=== PATIENT | female | born 1950 | race Caucasian/White ===

== ENCOUNTER 2020-08-24 10:43 | Outpatient (CLI) | payer MEDICARE, SELFPAY ==
--- NOTE | 2020-08-24 10:52 | MM_ITS ---
WS: [id number] BILATERAL SCREENING DIGITAL MAMMOGRAM WITH CAD HISTORY: SCREENING COMPARISON: 06/15/2019 and 01/29/2017 Bilateral CC and MLO views submitted. Computer aided detection analyzed. Breast composition: There are scattered areas of fibroglandular density. No suspicious masses, microc alcifications or architectural distortion. Benign breast arterial calcifications. MM/[place] [id number] IMPRESSION: BI-RADS: 2-Benign FOLLOW UP: 1 Year Follow-up
== END 2020-08-24 10:44 | disposition home or self-care (01) ==
LOC: RADSHAW 10:49
PROVIDERS: PCP Nurse Practitioner Family; Visit Provider Nurse Practitioner Family
DX: Z12.31 Encounter for screening mammogram for malignant neoplasm of breast (principal)
CPT/HCPCS: 77067

== ENCOUNTER 2024-11-12 18:32 | Observation (INO) | payer MEDICARE, SELFPAY ==
[2024-11-12 18:39] VITALS: BP 174/96; PULSE 104; RESP 18; TEMP 36.6; O2SAT 92; BMI 27.4
[2024-11-12 18:42] VITALS: BP 174/86; PULSE 105; O2SAT 92
--- NOTE | 2024-11-12 18:59 | ECG_ITS ---
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
--- NOTE | 2024-11-12 19:22 | XRR_ITS ---
PROCEDURE INFORMATION: Exam: XR Left Hip Exam date and time: 11/12/2024 7:29 PM Age: 74 years old Clinical indication: Injury or trauma; Fall; Blunt trauma (contusions or hematomas); Left; Hip TECHNIQUE: Imaging protocol: Radiologic exam of the left hip. Views: 2 or 3 views hip with pelvis when performed. COMPARISON: No relevant prior studies available. FINDINGS: Bones/joints: There is a minimally displaced left superior pubic ramus fracture. No additional fractures. Degenerative changes involve the left hip. Soft tissues: Unremarkable. XR/XR hip LT 2-3V wo/w pel* [id number] IMPRESSION: Minimally displaced left superior pubic ramus fracture.
--- NOTE | 2024-11-12 19:22 | XRR_ITS ---
PROCEDURE INFORMATION: Exam: XR Left Wrist Exam date and time: 11/12/2024 7:29 PM Age: 74 years old Clinical indication: Injury or trauma; Fall; Blunt trauma (contusions or hematomas); Wrist; Left TECHNIQUE: Imaging protocol: Radiologic exam of the left wrist. Views: 3 or more views. COMPARISON: No relevant prior studies available. FINDINGS: Bones/joints: There is an impacted fracture involving the distal radial metaphysis without intra-articular extension. Suspected old ulnar styloid fracture. No additional fractures identified. Soft tissues: Diffuse soft tissue swelling present. XR/XR wrist LT min 3V* [id number] IMPRESSION: Acute impacted fracture involving the distal radial metaphysis.
--- NOTE | 2024-11-12 19:51 | ED_ITS ---
HPI - Fall General: Chief Complaint: Fall Stated Complaint: fall on ice - left hip/arm pain Time Seen by Provider: 11/12/24 18:46 History of Present Illness: This patient is a 74-year-old white female who presents to the emergency department for evaluation of injuries after falling. Patient states she slipped in the snow and ice tonight when she was going out to get the mail. She complains of pain in the left wrist and left hip. She was unable to ambulate following the fall. No head injury. Review of Systems General: Reports: 10 or more systems reviewed and unremarkable except in HPI and below Musc: Reports: other (Left wrist pain/injury, left hip pain/injury.) Physical Exam Const: COMMON NORMALS: no acute distress, patient oriented x3 and no limitations GENERAL APPEARANCE: cooperative and comfortable HENMT: COMMON NORMALS: normocephalic, atraumatic, Normal nasal mucous membranes and turbinates present, moist oral mucous membranes and oropharynx normal HEAD & SCALP: normal to inspection, normocephalic and atraumatic FACE & SINUS: normal facial exam NOSE: Normal nasal mucous membranes and turbinates present Eye: COMMON NORMALS: Equal, round and reactive pupils present, EOMs intact bilaterally and conjunctivae normal GENERAL EYE: appearance normal, both eyes and all related structures CONJUNCTIVA: Yes conjunctivae normal PUPIL: Yes Equal, round and reactive pupils present Neck/C-Spine: COMMON NORMALS: supple and no JVD Chest: COMMONS NORMALS: normal inspection of the chest Resp: COMMON NORMALS: normal respiratory effort and clear to auscultation bilaterally AUSCULTATION: clear to auscultation bilaterally Cardio: COMMON NORMALS: no JVD, regular rate, regular rhythm, No gallops present (Cardio), No murmurs present (Cardio) and No rub (Cardio) RATE: regular rate RHYTHM: regular rhythm GI: COMMON NORMALS: Normal to inspection, nondistended, normoactive bowel sounds present, Soft to palpation and non-tender AUSCULTATION: Yes normoactive bowel sounds PALPATION: Yes Soft to palpation Back/Pelvis: COMMON NORMALS: no thoracic nor lumbar tenderness PELVIS: Yes Other pelvic findings (Left groin pain. Mild pain with range of motion of left hip.) COCCYX: Other pelvic findings (Left groin pain. Mild pain with range of motion of left hip.) Extremity: NARRATIVE EXTREMITY EXAM: Mild swelling over the distal radius left wrist. Painful range of motion. No open wounds. Neuro: COMMON NORMALS: patient oriented x3 and CN's II-XII intact bilaterally Psych: COMMON NORMALS: mental status grossly normal, Normal thought process present and cooperative THOUGHT PROCESS: Normal thought process present Skin: COMMON NORMALS: no rashes or lesions noted, turgor normal and no jaundice GENERAL SKIN EXAM: no rashes or lesions noted and turgor normal Course Vital Signs: Vital signs: Vital Signs Temperature 98 F 11/12/24 18:39 Pulse Rate 103 H 11/12/24 20:11 Respiratory Rate 18 11/12/24 20:11 Blood Pressure 176/93 11/12/24 20:11 Pulse Oximetry 92 11/12/24 20:11 Oxygen Delivery Me thod Room Air 11/12/24 20:11 MDM - Fall Medical Decision Making X-rays of the left wrist reveal a fracture of the distal radius. No displacement. X-rays of the left hip reveal a superior pubic rami fracture. I discussed the results with the patient. Patient initially declined pain medication. She does live at home alone and does not have anyone that can help her. She would like to try some pain medication here and see if she can get back up on her feet. We did give her 1 hydrocodone tablet and 600 mg of ibuprofen p.o. Once this took effect nursing staff did try to ambulate her and she is unable to ambulate. She will need to be admitted for rehab. Call placed to the hospitalist. Discussed case with Dr. Macdonald. He has accepted the patient. Patient will be admitted shortly. She is stable. Lab Data Radiology Impressions Hip/Pelvis X-Ray 11/12/24 19:22 IMPRESSION: Minimally displaced left superior pubic ramus fracture. Wrist X-Ray 11/12/24 19:22 IMPRESSION: Acute impacted fracture involving the distal radial metaphysis. All radiology interpretation(s) finalized by discharge Discharge Plan Discharge Condition: Stable Referrals: Lacy Vallejo FNP [Primary Care Provider] - Coding Level of Care Code ED [employer] Saw Operator for Hermelinda Rock
[2024-11-12] MEDS: ibuprofen 600 mg Tablet PO (19:59)
[2024-11-12] MEDS: HYDROcodone-acetaminophen 5-325 mg Tablet 1 TAB PO (19:59)
[2024-11-12 20:11] VITALS: BP 176/93; PULSE 103; RESP 18; O2SAT 92
--- NOTE | 2024-11-12 21:26 | PM.HP ---
Providers/Chief Complaint Primary Care Provider: Lacy Vallejo Chief Complaint: fall on ice - left hip/arm pain History of Present Illness Zeynep Wild is a 74 year old female who presented after sustaining a fall while getting her mail. Patient is stating that she is diabetic takes 2 antioral hypoglycemic agents, take 1 medication for her hypertension. She is not sure about the name. No history of stroke, CVA or cancer presenting today with chief complaint of worsening of pain of her wrist and hip pain. In the ER she was diagnosed with right wrist fracture and left pubic rami fracture, a walker was provided, she was not able to ambulate, she lives alone in her [place] apartment, hospitalist was requested to admit Review of Systems Const: Denies: fever(s) Eyes: Denies: change in vision ENMT: Denies: throat pain Card: Denies: chest pain Resp: Reports: dyspnea GI: Denies: abdominal pain Musc: Reports: back pain and extremity pain PFSH Acute PFSH: Medical History Hypertension Diabetes Vitals/I&O/Wt Last Vital Signs Temp 98 F 11/12/24 18:39 Pulse 103 H 11/12/24 20:11 Resp 18 11/12/24 20:11 BP 176/93 11/12/24 20:11 Pulse Ox 92 11/12/24 20:11 O2 Del Method Room Air 11/12/24 20:11 11/12/24 11/12/24 11/12/24 06:59 14:59 22:59 Intake Total 0 / 0 Balance 0 / 0 Weight last 48 hrs Weight 72.575 kg Physical Exam Narrative: Patient is awake and alert Euvolemic GCS 15 Nonfocal neuroexam Hemodynamically stable S1, S2 Currently on room air Hypertensive Complaining of pain Arm is in a sling Sitting comfortably in her bed Hypertensive A&P Assessment and plan (1) Pubic ramus fracture: (2) Wrist fracture, right: Plan Mechanical fall Right wrist fracture Left pubic rami fracture Opiates lumbar regimen Physical therapy in the morning Lives alone in an apartment For type 2 diabetes will use insulin sliding scale and consistent carb diet Hypertension: Added lisinopril Full code DVT prophylaxis: Lovenox [facility] Attestations Medical Necessity Statement*: Anticipating discharge within 48 hours Coding Level of Care Code Acute Code for Chg Fwd Diagnoses Pubic ramus fracture S32.599A Wrist fracture, right S62.101A
[2024-11-12 22:00] VITALS: BP 122/77; PULSE 93; RESP 16; O2SAT 96
[2024-11-12 23:03] LABS: Glucose Point of Care 262 mg/dL (70-110)
[2024-11-12 23:25] VITALS: RESP 16
[2024-11-12] MEDS: morphine IR 15 mg Tablet PO (23:25)
[2024-11-13] VITALS: BP 161/75; PULSE 85; RESP 16; TEMP 36.7; O2SAT 92
[2024-11-13 00:18] LABS: Basophils % 0.2 %; Eosinophils # 0.1 10^3/uL (0.0-0.8); Eosinophils % 0.5 %; Lymphocytes # 2.2 10^3/uL (0.8-4.8); Lymphocytes % 17.7 %; Mean Corpuscular HGB Conc 32.1 g/dL (30-55); Mean Corpuscular Hemoglobin 28.6 pg (27-33); Mean Platelet Volume 11.5 fL (7.4-10.4); Monocytes # 0.9 10^3/uL (0.2-0.9); Monocytes % 7.2 %; Neutrophils # 9.02 10^3/uL (1.8-7.7); Neutrophils % 73.7 %; Nucleated Red Blood Cells % 0 %; Platelet Count 261 10^3/cmm (157-399); Red Blood Count 4.27 10^6/uL (3.85-5.65); Red Cell Distribution Width 13.2 % (12.1-15.1); White Blood Count 12.22 10^3/uL (3.29-11.43)
[2024-11-13] MEDS: enoxaparin 40 mg/0.4 mL Syringe SUBCUT ×2 (00:37→22:10)
[2024-11-13 00:41] LABS: Anion Gap 21.5 (5-19); Blood Urea Nitrogen 20 mg/dL (8-23); Calcium 9.5 mg/dL (8.5-10.5); Carbon Dioxide 20 mmol/L (22-29); Chloride 101 mmol/L (98-107); Creatinine Clr Calc Pharmacy 53.2859; Glucose 267 mg/dL (65-115); Magnesium 1.6 mg/dL (1.7-2.3); Osmolality Calculated 298 mOsm/kg (285-295); Potassium 4.5 mmol/L (3.5-5.1); Sodium 138 mmol/L (136-145)
[2024-11-13] MEDS: acetaminophen 500 mg Tablet PO ×3 (03:36→16:56)
[2024-11-13 04:00] VITALS: BP 154/76; PULSE 97; RESP 17; TEMP 36.7; O2SAT 92
[2024-11-13 04:25] LABS: Vitamin B12 382 pg/mL (232-1245)
[2024-11-13 06:52] LABS: Glucose Point of Care 202 mg/dL (70-110)
[2024-11-13 07:27] VITALS: BP 110/66; PULSE 96; TEMP 36.8; O2SAT 97
[2024-11-13] MEDS: sennosides-docusate Tablet 1 TAB PO (09:28)
[2024-11-13] MEDS: lisinopril 10 mg Tablet PO (09:28)
[2024-11-13] MEDS: insulin lispro 100 unit/1 mL SUBCUT ×3 (09:28→18:37)
[2024-11-13 12:00] VITALS: BP 99/64; PULSE 114; TEMP 36.7; O2SAT 92
[2024-11-13 12:08] LABS: Glucose Point of Care 217 mg/dL (70-110)
[2024-11-13] MEDS: HYDROcodone-acetaminophen 5-325 mg Tablet 1 TAB PO ×2 (13:41→20:19)
[2024-11-13 14:09] LABS: Estmated Average Glucose 186; Hemoglobin A1C 8.1 % (4.0-6.0)
--- NOTE | 2024-11-13 14:30 | P.PN_ITS ---
Subjective 2 Subjective: Hydrated overnight. Today morning seen sitting up in chair. States she is in a lot of pain. Denies any nausea counting, headache. Has remained hemodynamically stable and afebrile. Heart rate slightly elevated. Remains on room air. Vitals/I&O/Wt Last Vital Signs Temp 98.1 F 11/13/24 12:00 Pulse 114 H 11/13/24 12:00 Resp 17 11/13/24 04:00 BP 99/64 11/13/24 12:00 Pulse Ox 92 11/13/24 12:00 O2 Del Method Room Air 11/13/24 12:00 O2 Flow Rate 1 11/13/24 08:00 11/12/24 11/13/24 11/13/24 22:59 06:59 14:59 Intake Total 0 / 0 240 / 240 Balance 0 / 0 240 / 240 Weight last 48 hrs Weight 75.478 kg Weight 74.191 kg Weight 72.575 kg Physical Exam 2 Narrative: General: Mild distress because of pain, AOx3 HEENT: PERRLA, pupils bilaterally equal and reactive Chest: Normal vesicular breath sounds, no added sounds, equal good air entry bilaterally CVS: S1-S2 regular, no murmurs, no tachycardia, no gallops, no rubs Abdomen: Soft, nontender, no organomegaly, bowel sounds present Neuro: No focal deficits, no facial deformity, AO x3, power 5/5 in all limbs Data 11/12/24 23:48 11/12/24 23:46 A&P Assessment and plan (1) Pubic ramus fracture: Continue with physical therapy. Conservative treatment with PT and pain management. Switch to [place] every 6 hour as needed. If needed will add tramadol. Check vitamin B12, vitamin D levels (2) Wrist fracture, right: In a sling. Will need to follow-up with orthopedic team as an outpatient. (3) Fall: (4) Hypothyroidism: Continue with home dose of levothyroxine. Check TSH. (5) Hypertension: Goal blood pressure less than 140/90 mmHg. Restart home dose of metoprolol. Blood pressure slightly soft for now. Hold off on losartan. Discontinue lisinopril as patient is already on losartan as an outpatient. (6) Diabetes: Check A1c. Insulin sliding scale. Takes glipizide 10 mg twice daily at home. Plan Full code DVT prophylaxis: Lovenox [facility] Attestations 2 Medical Necessity Statement*: Requires further hospitalization for management of pubic rami fracture, right wrist fracture in setting of mechanical fall while safe discharge planning is sought Diagnoses Pubic ramus fracture S32.599A Wrist fracture, right S62.101A Fall W19.XXXA Hypothyroidism E03.9 Hypertension I10 Diabetes E11.9
[2024-11-13 14:38] LABS: 25 Hydroxy Vitamin D 40 ng/mL (30-100); Procalcitonin 0.11 ng/mL (0-0.5); Thyroid Stimulating Hormone 0.35 uIU/mL (0.27-4.20)
[2024-11-13 14:48] LABS: Iron 54 ug/dL (37-145); Total Iron Binding Capacity 283 mcg/dl; Unsaturated Iron Binding 229 ug/dL (112-347)
[2024-11-13 16:00] VITALS: BP 149/79; PULSE 115; TEMP 37.2; O2SAT 90
[2024-11-13 16:45] LABS: Glucose Point of Care 220 mg/dL (70-110)
[2024-11-13] MEDS: metoprolol tartrate 25 mg Tablet PO (18:37)
[2024-11-13 20:00] VITALS: BP 165/75; PULSE 115; RESP 20; TEMP 36.9; O2SAT 94
[2024-11-13 20:44] LABS: Glucose Point of Care 233 mg/dL (70-110)
[2024-11-14] VITALS: BP 114/67; PULSE 88; RESP 16; TEMP 36.9; O2SAT 93
[2024-11-14] MEDS: HYDROcodone-acetaminophen 5-325 mg Tablet 1 TAB PO ×4 (02:17→22:21)
[2024-11-14 04:00] VITALS: BP 108/64; PULSE 88; RESP 15; TEMP 37; O2SAT 91
[2024-11-14 05:33] LABS: Basophils % 0.3 %; Eosinophils # 0.4 10^3/uL (0.0-0.8); Eosinophils % 4.3 %; Hematocrit 33.7 % (36-47); Lymphocytes # 2.8 10^3/uL (0.8-4.8); Lymphocytes % 27.7 %; Mean Corpuscular HGB Conc 32.6 g/dL (30-55); Mean Corpuscular Hemoglobin 29.3 pg (27-33); Mean Corpuscular Volume 89.9 fl (85-98); Mean Platelet Volume 11.3 fL (7.4-10.4); Monocytes # 0.8 10^3/uL (0.2-0.9); Monocytes % 8.2 %; Neutrophils # 5.99 10^3/uL (1.8-7.7); Neutrophils % 59.2 %; Nucleated Red Blood Cells % 0 %; Platelet Count 234 10^3/cmm (157-399); Red Blood Count 3.75 10^6/uL (3.85-5.65); Red Cell Distribution Width 13.3 % (12.1-15.1); White Blood Count 10.11 10^3/uL (3.29-11.43)
[2024-11-14 05:48] LABS: Chol HDL Ratio 3.41 mg/dL (0.0-4.40); Cholesterol 167 mg/dL (0-200); HDL Cholesterol 49 mg/dL (60-100); LDL Cholesterol Calculated 91 mg/dL (50-129); Magnesium 1.6 mg/dL (1.7-2.3); Triglycerides 136 mg/dL (0-150); VLDL Cholestrol Calculation 27 mg/dL (0-30)
[2024-11-14 05:56] LABS: Alanine Aminotransferase 17 U/L (0-33); Albumin Level 3.6 g/dL (3.5-5.2); Alkaline Phosphatase 51 U/L (35-105); Anion Gap 15.1 (5-19); Aspartate Amino Transferase 14 U/L (0-32); Blood Urea Nitrogen 21 mg/dL (8-23); Calcium 9.1 mg/dL (8.5-10.5); Carbon Dioxide 23 mmol/L (22-29); Chloride 100 mmol/L (98-107); Creatinine Clr Calc Pharmacy 48.0181; Globulin 2.4 g/dL (1.3-4.6); Glucose 258 mg/dL (65-115); Osmolality Calculated 290 mOsm/kg (285-295); Potassium 4.1 mmol/L (3.5-5.1); Sodium 134 mmol/L (136-145); Total Bilirubin 0.6 mg/dL (0.15-1.2)
[2024-11-14] MEDS: levothyroxine 125 mcg Tablet PO (06:13)
[2024-11-14 06:18] LABS: Folate Level > 20.0 ng/mL (4.8-37.3)
[2024-11-14 06:23] LABS: Glucose Point of Care 227 mg/dL (70-110)
[2024-11-14 07:37] VITALS: BP 127/76; PULSE 92; RESP 16; O2SAT 90
[2024-11-14] MEDS: sennosides-docusate Tablet 1 TAB PO (08:22)
[2024-11-14] MEDS: atorvastatin 40 mg Tablet 20 MG PO (08:22)
[2024-11-14] MEDS: metoprolol tartrate 25 mg Tablet PO ×2 (08:22→18:32)
[2024-11-14] MEDS: sertraline 100 mg Tablet PO (08:22)
[2024-11-14] MEDS: insulin lispro 100 unit/1 mL SUBCUT ×3 (08:22→18:31)
[2024-11-14 11:38] LABS: Glucose Point of Care 215 mg/dL (70-110)
[2024-11-14 11:55] VITALS: BP 115/66; PULSE 89; TEMP 36.9; O2SAT 92
--- NOTE | 2024-11-14 13:33 | P.PN_ITS ---
Subjective 2 Subjective: Acute events overnight. Has remained stable and afebrile. States pain is well- controlled. Denies any nausea vomiting, headache. Vitals/I&O/Wt Last Vital Signs Temp 98.4 F 11/14/24 11:55 Pulse 89 11/14/24 11:55 Resp 16 11/14/24 07:37 BP 115/66 11/14/24 11:55 Pulse Ox 92 11/14/24 11:55 O2 Del Method Room Air 11/14/24 07:37 O2 Flow Rate 1 11/13/24 08:00 11/13/24 11/14/24 11/14/24 22:59 06:59 14:59 Intake Total 480 / 720 480 / 480 Balance 480 / 720 480 / 480 Weight last 48 hrs Weight 74.389 kg Weight 75.478 kg Weight 74.191 kg Weight 72.575 kg Physical Exam 2 Narrative: General: Mild distress because of pain, AOx3 HEENT: PERRLA, pupils bilaterally equal and reactive Chest: Normal vesicular breath sounds, no added sounds, equal good air entry bilaterally CVS: S1-S2 regular, no murmurs, no tachycardia, no gallops, no rubs Abdomen: Soft, nontender, no organomegaly, bowel sounds present Neuro: No focal deficits, no facial deformity, AO x3, power 5/5 in all limbs Data 11/14/24 04:59 11/14/24 04:59 A&P Assessment and plan (1) Pubic ramus fracture: Continue with physical therapy. Conservative treatment with PT and pain management. Switch to [place] every 6 hour as needed. If needed will add tramadol. Check vitamin B12, vitamin D levels (2) Wrist fracture, right: In a sling. Will need to follow-up with orthopedic team as an outpatient. (3) Fall: (4) Hypothyroidism: Continue with home dose of levothyroxine. Check TSH. (5) Hypertension: Goal blood pressure less than 140/90 mmHg. Restart home dose of metoprolol. Blood pressure slightly soft for now. Hold off on losartan. Discontinue lisinopril as patient is already on losartan as an outpatient. (6) Diabetes: Check A1c. Insulin sliding scale. Takes glipizide 10 mg twice daily at home. Plan Full code DVT prophylaxis: Lovenox Famotidine for PUD prophylaxis Plan for the day: Continue physical therapy. Pain control with [place] every 6 hours as needed. Blood pressure is well-controlled. Care discussed in detail with patient at bedside and daughter over the phone. A1c found to be 8.1. Continue with sliding scale for now. Discharge plan: Patient requesting to be placed to SNF today for further rehabitation and pain control. Will consult case management once available. Attestations 2 Medical Necessity Statement*: Requires further hospitalization for management of pain control and safe discharge planning in setting of pubic rami fractures Diagnoses Pubic ramus fracture S32.599A Wrist fracture, right S62.101A Fall W19.XXXA Hypothyroidism E03.9 Hypertension I10 Diabetes E11.9
[2024-11-14 16:00] VITALS: BP 147/77; PULSE 108; TEMP 36.6; O2SAT 90
[2024-11-14 18:19] LABS: Glucose Point of Care 221 mg/dL (70-110)
[2024-11-14] MEDS: acetaminophen 500 mg Tablet PO (19:59)
[2024-11-14 20:00] VITALS: BP 114/65; PULSE 86; RESP 16; TEMP 37; O2SAT 93
[2024-11-14 20:50] LABS: Glucose Point of Care 149 mg/dL (70-110)
[2024-11-14] MEDS: enoxaparin 40 mg/0.4 mL Syringe SUBCUT (22:52)
[2024-11-15] VITALS (7 sets, daily range): BP systolic 106–173; BP diastolic 53–88; PULSE 84–104; RESP 15–17; TEMP 36.7–37; O2SAT 90–96
[2024-11-15] MEDS: acetaminophen 500 mg Tablet PO ×4 (02:59→22:21)
[2024-11-15] MEDS: HYDROcodone-acetaminophen 5-325 mg Tablet 1 TAB PO ×4 (04:18→21:08)
[2024-11-15 04:25] LABS: Basophils % 0.3 %; Eosinophils # 0.4 10^3/uL (0.0-0.8); Eosinophils % 4.1 %; Hematocrit 34.7 % (36-47); Lymphocytes # 3.2 10^3/uL (0.8-4.8); Lymphocytes % 30.7 %; Mean Corpuscular HGB Conc 32.6 g/dL (30-55); Mean Corpuscular Hemoglobin 29.1 pg (27-33); Mean Corpuscular Volume 89.4 fl (85-98); Mean Platelet Volume 11.6 fL (7.4-10.4); Monocytes # 0.9 10^3/uL (0.2-0.9); Monocytes % 8.7 %; Neutrophils # 5.88 10^3/uL (1.8-7.7); Neutrophils % 55.7 %; Nucleated Red Blood Cells % 0 %; Platelet Count 241 10^3/cmm (157-399); Red Blood Count 3.88 10^6/uL (3.85-5.65); Red Cell Distribution Width 13.2 % (12.1-15.1); White Blood Count 10.55 10^3/uL (3.29-11.43)
[2024-11-15 04:42] LABS: Magnesium 1.5 mg/dL (1.7-2.3)
[2024-11-15 04:45] LABS: Alanine Aminotransferase 15 U/L (0-33); Albumin Level 3.7 g/dL (3.5-5.2); Alkaline Phosphatase 52 U/L (35-105); Anion Gap 19.9 (5-19); Aspartate Amino Transferase 15 U/L (0-32); Blood Urea Nitrogen 21 mg/dL (8-23); Carbon Dioxide 20 mmol/L (22-29); Chloride 99 mmol/L (98-107); Creatinine Clr Calc Pharmacy 59.6746; Globulin 2.7 g/dL (1.3-4.6); Glucose 199 mg/dL (65-115); Osmolality Calculated 289 mOsm/kg (285-295); Potassium 3.9 mmol/L (3.5-5.1); Sodium 135 mmol/L (136-145); Total Bilirubin 0.8 mg/dL (0.15-1.2); Total Protein 6.4 g/dL (6.6-8.7)
[2024-11-15] MEDS: levothyroxine 125 mcg Tablet PO (06:16)
[2024-11-15 06:27] LABS: Glucose Point of Care 194 mg/dL (70-110)
[2024-11-15] MEDS: sennosides-docusate Tablet 1 TAB PO (09:27)
[2024-11-15] MEDS: lidocaine 5% Patch 1 PATCH TOPICAL (09:27)
[2024-11-15] MEDS: metoprolol tartrate 25 mg Tablet PO (09:28)
[2024-11-15] MEDS: atorvastatin 40 mg Tablet 20 MG PO (09:28)
[2024-11-15] MEDS: sertraline 100 mg Tablet PO (09:28)
[2024-11-15] MEDS: insulin lispro 100 unit/1 mL SUBCUT ×2 (09:28→13:51)
--- NOTE | 2024-11-15 09:40 | PC.CHAP ---
Pastoral Care Encounter/Spiritual Assessment Type of Contact [] Declined crew member visit [] Patient/Family/Request visit [] Outpatient visit [] Follow-up visit [] Physician referral [] Code/Alert [x] Routine visit [] Staff referral [] Actively dying [] Patient sleeping [] Family support [] [] Out of room [] Palliative care [] [] Receiving care in room [] Pre-surgical visit [] Trauma [] Long length of stay [] ICU visit [] Other: Relational/Emotional Strength [] Patient feels connected with others/family/visitors/staff [] Distress [] Loneliness/isolation [] Abandonment Spirituality of Patient [x] Person of Sofia [] Attends Episcopal of their [place] [x] Believes in Prayer [] Reads Bible or Restorationism materials [] There are Spiritual issues to be addressed Tunnel Kiln Operator Interventions [x] Prayer [x] Active listening [] Non-anxious presence [] Spiritual/emotional support [] Crisis/trauma care [] Spiritual counseling [] Bereavement support [] Provided bereavement packet [x] Provided Bible/devotional materials [] Provided toy/stuffed animal, coloring book to patient or family member [] Provided Communion [] Anointing/[place] [] Salvation [x] Completed spiritual assessment [] Other: Impact on Illness or Injury [] Angry [] Fearful [] Anxious [] Often cries [] Exhaustion [] Unable to work [] Unable to attend gnosticist [] Unable to walk/stand [] Unable to read [] Unable to drive [] Unable to eat/drink [] Unable to sleep [] Unable to be with family [] Patient intubated [] Other: Summary Time spent with patient 10 min
[2024-11-15 10:46] LABS: Glucose Point of Care 253 mg/dL (70-110)
[2024-11-15 16:51] LABS: Glucose Point of Care 180 mg/dL (70-110)
--- NOTE | 2024-11-15 18:25 | PM.PN ---
Subjective Subjective: Patient reports having butt discomfort. She says her left arm has minimal discomfort. Patient states she was able to walk across the room however this took her much longer than previously requiring a specialized walker. She is home alone in an apartment and would rather get therapy at residential if her insurance will pay for it otherwise she would except home health care. Vitals/I&O/Wt Last Vital Signs Temp 98.1 F 11/15/24 15:08 Pulse 92 11/15/24 15:08 Resp 17 11/15/24 15:08 BP 125/71 11/15/24 15:08 Pulse Ox 93 11/15/24 15:08 O2 Del Method Room Air 11/15/24 15:08 O2 Flow Rate 1 11/13/24 08:00 11/15/24 11/15/24 11/15/24 06:59 14:59 22:59 Intake Total 360 / 360 200 / 560 Balance 360 / 360 200 / 560 Weight last 48 hrs Weight 73.482 kg Weight 74.389 kg Physical Exam Narrative: Appears stated age of 74 no acute distress at time of examination Heart regular normal S1-S2 without murmurs clicks gallops or rubs Lungs clear without wheezes rales or rhonchi Abdomen flat soft nontender nondistended positive bowel sounds Extremities no clubbing cyanosis edema Left wrist is in a splint Data 11/15/24 03:58 11/15/24 03:58 A&P Assessment and plan (1) Pubic ramus fracture: Continue with physical therapy. Conservative treatment with PT and pain management. [place] every 4 hours as needed vitamin B12 level is low normal, vitamin D levels pending (2) Wrist fracture, right: In a sling with splint Will need to follow-up with orthopedic team as an outpatient. (3) Fall: (4) Hypothyroidism: Continue with home dose of levothyroxine. (5) Hypertension: Goal blood pressure less than 140/90 mmHg. Restart home dose of metoprolol. Blood pressure slightly soft for now. Hold off on losartan. Discontinue lisinopril as patient is already on losartan as an outpatient. (6) Diabetes: A1c is 8.1 Insulin sliding scale. Takes glipizide 10 mg twice daily at home. As well as metformin 1000 twice daily (7) Hypomagnesemia: Plan Full code DVT prophylaxis: Lovenox Discharge plan: Patient requesting to be placed to SNF today for further rehabitation and pain control. Case management working with patient Attestations Medical Necessity Statement*: Awaiting insurance for authorization versus home with home health care Coding Level of Care Code Acute Code for Chg Fwd Diagnoses Pubic ramus fracture S32.599A Wrist fracture, right S62.101A Fall W19.XXXA Hypothyroidism E03.9 Hypertension I10 Diabetes E11.9 Hypomagnesemia E83.42
[2024-11-15 20:30] LABS: Glucose Point of Care 244 mg/dL (70-110)
[2024-11-15] MEDS: enoxaparin 40 mg/0.4 mL Syringe SUBCUT (22:15)
[2024-11-16] MEDS: HYDROcodone-acetaminophen 5-325 mg Tablet 1 TAB PO ×4 (01:04→13:36)
[2024-11-16 03:54] VITALS: BP 146/74; PULSE 105; RESP 18; TEMP 36.3; O2SAT 94
[2024-11-16] MEDS: levothyroxine 125 mcg Tablet PO (05:05)
[2024-11-16 06:22] LABS: Magnesium 1.6 mg/dL (1.7-2.3)
[2024-11-16 06:35] LABS: Glucose Point of Care 261 mg/dL (70-110)
[2024-11-16 07:24] VITALS: BP 151/80; PULSE 99; RESP 15; TEMP 36.8; O2SAT 94
[2024-11-16] MEDS: lidocaine 5% Patch 1 PATCH TOPICAL (08:12)
[2024-11-16] MEDS: insulin lispro 100 unit/1 mL SUBCUT ×2 (08:12→12:13)
[2024-11-16] MEDS: metoprolol tartrate 25 mg Tablet PO (08:13)
[2024-11-16] MEDS: magnesium oxide 400 mg tablet PO (08:13)
[2024-11-16] MEDS: atorvastatin 40 mg Tablet 20 MG PO (08:13)
[2024-11-16] MEDS: acetaminophen 500 mg Tablet PO ×2 (08:13→12:12)
[2024-11-16] MEDS: sertraline 100 mg Tablet PO (08:13)
[2024-11-16 11:03] LABS: Glucose Point of Care 291 mg/dL (70-110)
--- NOTE | 2024-11-16 11:08 | PM.DCS ---
Discharge Providers Date of Admission: 11/12/24 21:28 Date of Discharge: November 16, 2024 Attending Provider at Admission: Deven Macdonald MD Attending Provider at Discharge: Osiel Bertrand DO Primary Care Provider: Lacy Vallejo Diagnoses at Discharge Discharge Diagnosis (1) Pubic ramus fracture: Status: Acute (2) Wrist fracture, right: Status: Acute (3) Fall: Status: Acute (4) Hypothyroidism: Status: Acute (5) Hypertension: Status: Acute (6) Diabetes: Status: Acute (7) Hypomagnesemia: Status: Acute Reason for Visit Reason for Visit: fall on ice - left hip/arm pain Brief History: Zeynep Wild is a 74 year old female who presented after sustaining a fall while getting her mail. Patient is stating that she is diabetic takes 2 antioral hypoglycemic agents, take 1 medication for her hypertension. She is not sure about the name. No history of stroke, CVA or cancer presenting today with chief complaint of worsening of pain of her wrist and hip pain. In the ER she was diagnosed with right wrist fracture and left pubic rami fracture, a walker was provided, she was not able to ambulate, she lives alone in her [place] apartment, hospitalist was requested to admit Hospital Course Hospital Course Patient found to have a right wrist fracture and left pubic rami fracture. A walker with armrest was provided. She had significant pain nausea and headache the first 24 hours of admission. After hydration and appropriate pain medication patient markedly improved. While she is able to walk with this new walker it is extremely difficult for her. Since she lives alone she chose a short assisted stay. This was arranged the day of discharge 11/16/2024. The patient is discharged in stable and improved condition. Please note vitamin D level is pending at time of discharge this would be good to follow-up on after sustaining fractures. Physical Exam Narrative: Appears stated age of 74 no acute distress at time of examination her color is improved today and her mood as well. Heart regular normal S1-S2 without murmurs clicks gallops or rubs Lungs clear without wheezes rales or rhonchi Abdomen flat soft nontender nondistended positive bowel sounds Extremities no clubbing cyanosis edema Left wrist is in a splint Discharge Data Studies Completed and Pending Completed Studies During Hospitalization Category Date Time Status XR hip LT 2-3V wo/w pel* [id number] Stat Exams 11/12/24 19:22 Completed XR wrist LT min 3V* [id number] Stat Exams 11/12/24 19:22 Completed Pending at discharge Category Date Time Status Vitamin D 1,25 Dihydroxy Routine Lab 11/13/24 13:32 Received Radiology Impressions Hip/Pelvis X-Ray 11/12/24 19:22 IMPRESSION: Minimally displaced left superior pubic ramus fracture. Wrist X-Ray 11/12/24 19:22 IMPRESSION: Acute impacted fracture involving the distal radial metaphysis. Laboratory Results WBC 10.55 10^3/uL (3.29-11.43) 11/15/24 03:58 RBC 3.88 10^6/uL (3.85-5.65) 11/15/24 03:58 Hgb 11.30 g/dL (11.27-16.99) 11/15/24 03:58 Hct 34.7 % (36-47) L 11/15/24 03:58 MCV 89.4 fl (85-98) 11/15/24 03:58 MCH 29.1 pg (27-33) 11/15/24 03:58 MCHC 32.6 g/dL (30-55) 11/15/24 03:58 RDW 13.2 % (12.1-15.1) 11/15/24 03:58 Plt Count 241 10^3/cmm (157-399) 11/15/24 03:58 MPV 11.6 fL (7.4-10.4) H 11/15/24 03:58 Neut % (Auto) 55.7 % 11/15/24 03:58 Lymph % (Auto) 30.7 % 11/15/24 03:58 [place] % (Auto) 8.7 % 11/15/24 03:58 Eos % (Auto) 4.1 % 11/15/24 03:58 Baso % (Auto) 0.3 % 11/15/24 03:58 Neut # (Auto) 5.88 10^3/uL (1.8-7.7) 11/15/24 03:58 Lymph # (Auto) 3.2 10^3/uL (0.8-4.8) 11/15/24 03:58 [place] # (Auto) 0.9 10^3/uL (0.2-0.9) 11/15/24 03:58 Eos # (Auto) 0.4 10^3/uL (0.0-0.8) 11/15/24 03:58 Baso # (Auto) 0.0 10^3/uL (0.0-0.1) 11/15/24 03:58 Nucleated RBC % (auto) 0 % 11/15/24 03:58 Nucleated RBCs # 0.0 /100WBC 11/15/24 03:58 Sodium 135 mmol/L (136-145) L 11/15/24 03:58 Potassium 3.9 mmol/L (3.5-5.1) 11/15/24 03:58 Chloride 99 mmol/L (98-107) 11/15/24 03:58 Carbon Dioxide 20 mmol/L (22-29) L 11/15/24 03:58 Anion Gap 19.9 (5-19) H 11/15/24 03:58 BUN 21 mg/dL (8-23) 11/15/24 03:58 Creatinine 0.8 mg/dL (0.5-0.9) 11/15/24 03:58 GFR Calculation Not Reportable 11/15/24 03:58 Glucose 199 mg/dL (65-115) H 11/15/24 03:58 POC Glucose 291 mg/dL (70-110) H 11/16/24 10:59 Estimat Average Glucose 186 11/13/24 13:32 Hemoglobin A1c 8.1 % (4.0-6.0) H 11/13/24 13:32 Calculated Osmolality 289 mOsm/kg (285-295) 11/15/24 03:58 Calcium 9.0 mg/dL (8.5-10.5) 11/15/24 03:58 Magnesium 1.6 mg/dL (1.7-2.3) L 11/16/24 04:50 Iron 54 ug/dL (37-145) 11/13/24 13:32 TIBC 283 mcg/dl 11/13/24 13:32 % Saturation 19.0 % (20-50) L 11/13/24 13:32 Unsat Iron Binding 229 ug/dL (112-347) 11/13/24 13:32 Total Bilirubin 0.8 mg/dL (0.15-1.2) 11/15/24 03:58 AST 15 U/L (0-32) 11/15/24 03:58 ALT 15 U/L (0-33) 11/15/24 03:58 Alkaline Phosphatase 52 U/L (35-105) 11/15/24 03:58 Total Protein 6.4 g/dL (6.6-8.7) L 11/15/24 03:58 Albumin 3.7 g/dL (3.5-5.2) 11/15/24 03:58 Globulin 2.7 g/dL (1.3-4.6) 11/15/24 03:58 Triglycerides 136 mg/dL (0-150) 11/14/24 04:59 Cholesterol 167 mg/dL (0-200) 11/14/24 04:59 LDL Cholesterol, Calc 91 mg/dL (50-129) 11/14/24 04:59 Total VLDL Cholesterol 27 mg/dL (0-30) 11/14/24 04:59 HDL Cholesterol 49 mg/dL (60-100) L 11/14/24 04:59 Cholesterol/HDL Ratio 3.41 mg/dL (0.0-4.40) 11/14/24 04:59 Vitamin B12 382 pg/mL (232-1245) 11/12/24 23:46 25-OH Vitamin D Total 40 ng/mL (30-100) 11/13/24 13:32 Folate > 20.0 ng/mL (4.8-37.3) 11/14/24 04:59 Procalcitonin 0.11 ng/mL (0-0.5) 11/13/24 13:32 TSH 0.35 uIU/mL (0.27-4.20) 11/13/24 13:32 Vitals Last Vital Signs Temp 98.2 F 11/16/24 07:24 Pulse 99 11/16/24 07:24 Resp 15 11/16/24 07:24 BP 151/80 11/16/24 07:24 Pulse Ox 94 11/16/24 07:24 O2 Del Method Room Air 11/16/24 07:24 O2 Flow Rate 1 11/13/24 08:00 Discharge Plan Discharge Patient Disposition: Xfer SNF Condition: Stable Prescriptions: New hydrocodone-acetaminophen 5-325 mg Tablet 1 tab PO Q4H PRN (Reason: Moderate Pain) Qty: 20 0RF sennosides-docusate sodium [Stool Softener-Laxative] 8.6-50 mg Tablet 1 tab PO DAILY Qty: 60 0RF magnesium oxide 400 mg (241.3 mg magnesium) Tablet 400 mg PO BID Qty: 60 0RF Continued glipizide 10 mg tablet 10 mg PO BID sertraline 100 mg tablet 100 mg PO DAILY metformin 1,000 mg tablet 1,000 mg PO BID levothyroxine 125 mcg tablet 125 mcg PO QAM metoprolol tartrate 25 mg tablet 25 mg PO BID losartan 50 mg tablet 50 mg PO BID Changed lovastatin 20 mg tablet 20 mg PO BEDTIME Qty: 30 0RF Discharge Orders: Discharge Order (Routine); Ordered 11/16/24 Ordered By: Osiel Bertrand Other Ambulatory Orders: DME: Jean Carlos (Order) Location: None Selected Ordered By: Jacinto Ann Referrals: [facility] [Outside] Mal Raza MD [Physician] - Discharge Diet: Advance as tolerated Discharge Activity: Resume usual activity Discharge Attestations Time Spent in Discharge Care*: less than 30 min Quality Metrics Clinical Quality Measures [ No reported AMI, CVA or VTE this stay] Coding Level of Care Code Acute Code for Chg Fwd Diagnoses Pubic ramus fracture S32.599A Wrist fracture, right S62.101A Fall W19.XXXA Hypothyroidism E03.9 Hypertension I10 Diabetes E11.9 Hypomagnesemia E83.42
[2024-11-16 11:19] VITALS: BP 130/75; PULSE 97; RESP 17; TEMP 36.9; O2SAT 92
[2024-11-16 13:33] LABS: SARS Covid-2 Antigen Negative (Negative)
[2024-11-16 14:25] VITALS: BP 130/75; PULSE 97; RESP 18; TEMP 36.9; O2SAT 92
[2024-11-19 14:14] LABS: Vit D 1,25 (Oh)2, Total 28 pg/mL (18-72); Vit D2 1,25 (Oh)2 <8 pg/mL; Vit D3 1,25 (Oh)2 28 pg/mL
== END 2024-11-16 14:28 | disposition skilled nursing facility (03) ==
LOC: ER 20:54 → MEDSURG 21:46
PROVIDERS: Student in an Organized Health Care Education/Training Program; Admitting Provider Internal Medicine; Emergency Provider Emergency Medicine; PCP Nurse Practitioner Family; Visit Provider Internal Medicine
DX: S32.599A Other specified fracture of unspecified pubis, initial encounter for closed fracture (principal); S62.101A Fracture of unspecified carpal bone, right wrist, initial encounter for closed fracture; W19.XXXA Unspecified fall, initial encounter; E03.9 Hypothyroidism, unspecified; I10 Essential (primary) hypertension; E11.9 Type 2 diabetes mellitus without complications; E83.42 Hypomagnesemia
CPT/HCPCS: 29125; 36415; 36416; 73110; 73502; 80048; 80053; 80061; 82306; 82607; 82652; 82746; 82962; 83036; 83540; 83550; 83735; 84145; 84443; 85025; 87426; 93005; 96365; 96366; 96372; 97116; 97161; 97167; 97530; 99285; G0378; J1650; J1815

== ENCOUNTER → 2024-11-25 13:43 | Outpatient (BNVA) | payer MEDICARE, SELFPAY | PROVIDERS: PCP Nurse Practitioner Family; Visit Provider Orthopaedic Surgery | DX: Z09 Encounter for follow-up examination after completed treatment for conditions other than malignant neoplasm (principal); S32.592A Other specified fracture of left pubis, initial encounter for closed fracture; S62.102A Fracture of unspecified carpal bone, left wrist, initial encounter for closed fracture; W00.0XXA Fall on same level due to ice and snow, initial encounter | CPT/HCPCS: 73110; 73502; 99204 ==

== ENCOUNTER 2024-11-25 14:29 | Outpatient (CLI) | payer MEDICARE, SELFPAY | END 2024-11-25 14:30 | disposition home or self-care (01) | LOC: SOT 14:31 | PROVIDERS: PCP Nurse Practitioner Family; Visit Provider Orthopaedic Surgery | DX: Z46.89 Encounter for fitting and adjustment of other specified devices (principal); S62.102D Fracture of unspecified carpal bone, left wrist, subsequent encounter for fracture with routine healing; X58.XXXD Exposure to other specified factors, subsequent encounter | CPT/HCPCS: L3984 ==

== ENCOUNTER 2024-12-01 14:29 | Outpatient (CLI) | payer MEDICARE, SELFPAY ==
--- NOTE | 2024-12-01 14:35 | CT_ITS ---
WS: [id number] CT PELVIS NONCONTRAST HISTORY: S32.519A - Fracture of superior rim of unspecified pubis,... TECHNIQUE: Contiguous imaging is performed of the pelvis without contrast. Coronal and sagittal refor mats are reviewed. All CT scans at [facility] [place] use at least one of these dose optimization beulah hniques: automated exposure control; mA and/or kV adjustment per patient size (includes targeted exam s where dose is matched to clinical indication); or iterative reconstruction. DLP: 255.71 mGy.cm COMPARISON: Radiograph 11/25/2024, 11/12/2024 Comminuted fracture involving the LEFT superior pubic rami with significant healing. There is mild ar ny expansion at the fracture site. There is adjacent soft tissue edema and hematoma. Soft tissue exte nds beyond the fracture fragment. There is mild displacement of the fracture. Segmental fracture involving the LEFT inferior pubic rami with mild buckling and no displacement. No LEFT hip fracture. Moderate atherosclerosis iliac arteries. No adenopathy. Proximal RIGHT femoral intramedullary shaggy is identified. CT/CT pelvis wo con [id number] IMPRESSION: 1. Comminuted fracture involving the superior LEFT pubic rami with mild bony e xpansion. There is increased soft tissue at the fracture site which may be rela susi to the post fracture bleeding and edema. Due to the mild bony expansion rec ommend follow-up pelvic CT in 4 to 6 weeks to ensure there is continued healing . Concern is for an underlying mass causing the mild bony expansion. 2. Segmental fracture LEFT inferior pubic rami without significant displacemen t.
== END 2024-12-01 14:30 | disposition home or self-care (01) ==
PROVIDERS: PCP Family Medicine; Visit Provider Orthopaedic Surgery
DX: S32.502A Unspecified fracture of left pubis, initial encounter for closed fracture (principal); X58.XXXA Exposure to other specified factors, initial encounter; R93.89 Abnormal findings on diagnostic imaging of other specified body structures; I70.8 Atherosclerosis of other arteries
CPT/HCPCS: 72192

== ENCOUNTER → 2025-01-06 15:54 | Outpatient (BNVA) | payer MEDICARE, SELFPAY | PROVIDERS: PCP Family Medicine; Visit Provider Orthopaedic Surgery | DX: S32.592A Other specified fracture of left pubis, initial encounter for closed fracture (principal); X58.XXXA Exposure to other specified factors, initial encounter; M25.532 Pain in left wrist | CPT/HCPCS: 73110; 99214 ==

== ENCOUNTER 2025-01-28 10:34 | Outpatient (CLI) | payer MEDICARE, SELFPAY ==
--- NOTE | 2025-01-28 11:00 | MR_ITS ---
WS: [id number] MRI PELVIS WITH AND WITHOUT CONTRAST. COMPARISON: CT pelvis 12/01/2024 Multiplanar, multisequence imaging is performed with and without contrast. MultiHance 15 mL. History: Follow-up pelvic fracture. Reidentified is a fracture with bony expansion involving the LEFT pubic rami. There is still bony expansion and peripheral enhancement at the fracture site. Suspect this all may still be related to healing fracture with associated hematoma. Additional marrow edema is now noted within the RIGHT symphysis pubis. There is extensive marrow edema noted bilaterally within the sacrum consistent with insufficiency fracture. Healing segmental fracture involving the LEFT inferior pubic rami. No hip fracture. Mild narrowing of the hip joints. Mild diffuse sarcopenia of the muscles of the pelvis. No free fluid in the pelvis. MR/MR pelvis wo/w con [id number] IMPRESSION: 1. Reidentified is the bony expansile lesion with fracture involving the LEFT superior pubic rami. Still favor this is probably an area of hemorrhage related to the fracture. There is peripheral enhancement surrounding the bony lesion w hich can be seen with healing fracture. 2. Healing segmental fracture involving the LEFT inferior pubic rami. 3. Additional marrow edema now identified in the RIGHT symphysis pubis. 4. Extensive bilateral sacral insufficiency fractures. In retrospect the LEFT sacral insufficiency fracture was evident on the prior CT. The RIGHT sacral ins ufficiency fracture was not definitely noted.
[2025-01-28] MEDS: gadobenate dimeglumine 20 mL vial IV (11:34)
== END 2025-01-28 10:35 | disposition home or self-care (01) ==
PROVIDERS: PCP Family Medicine; Visit Provider Orthopaedic Surgery
DX: R10.2 Pelvic and perineal pain (principal); S32.592A Other specified fracture of left pubis, initial encounter for closed fracture; X58.XXXA Exposure to other specified factors, initial encounter; M89.9 Disorder of bone, unspecified; S32.592D Other specified fracture of left pubis, subsequent encounter for fracture with routine healing; X58.XXXD Exposure to other specified factors, subsequent encounter; R93.89 Abnormal findings on diagnostic imaging of other specified body structures; M62.84 Sarcopenia; M16.0 Bilateral primary osteoarthritis of hip
CPT/HCPCS: 72197

== ENCOUNTER → 2025-02-01 13:46 | Outpatient (BNVA) | payer MEDICARE, SELFPAY | PROVIDERS: PCP Family Medicine; Visit Provider Orthopaedic Surgery | DX: S62.102A Fracture of unspecified carpal bone, left wrist, initial encounter for closed fracture (principal); S32.512A Fracture of superior rim of left pubis, initial encounter for closed fracture; X58.XXXA Exposure to other specified factors, initial encounter | CPT/HCPCS: 73110; 99213 ==

== ENCOUNTER → 2025-03-15 13:55 | Outpatient (BNVA) | payer MEDICARE, SELFPAY | PROVIDERS: PCP Family Medicine; Visit Provider Orthopaedic Surgery | DX: S52.591D Other fractures of lower end of right radius, subsequent encounter for closed fracture with routine healing (principal); X58.XXXD Exposure to other specified factors, subsequent encounter; M25.532 Pain in left wrist | CPT/HCPCS: 73110; 99213 ==